=== PATIENT | female | born 1955 | race Caucasian/White ===

== ENCOUNTER 2016-10-11 08:35 | Emergency (ER) | payer BC ==
[~2016-10-11] VITALS: Ht 167.6 cm; Wt 104.0 kg
[2016-10-11 08:41] VITALS: BP 152/80; PULSE 82; RESP 16; TEMP 98.4; O2SAT 96
[2016-10-11 09:06] LABS: BLOOD, URINE LARGE (NEG); GLUCOSE,URINE 250 mg/dL (NEG); KETONE, URINE TRACE mg/dL (NEG)
[2016-10-11 09:13] LABS: NITRITE,URINE POS (NEG)
[2016-10-11 09:26] LABS: METHOD OF COLLECTION CLEAN CATCH; URINE COLOR ORANGE (YELLW/STRAW)
[2016-10-11 09:27] LABS: COMMENT (UR) CULTURE INDICATED; CULTURE IF INDICATED CULTURE INDICATED; RBC, URINE INNUM /hpf (0-3); SQUAMOUS EPITHELIAL CELL URINE > 8 /hpf (0-5); WBC, URINE INNUM /hpf (0-5)
[2016-10-11] MEDS ORDERED: MACR100C3 PO (09:50)
[2016-10-11] MEDS ORDERED: LEVO88TA2 PO (09:52)
[2016-10-11 09:56] VITALS: BP 146/78; PULSE 80; RESP 18; O2SAT 99
--- NOTE | 2016-10-11 10:04 | PD ---
HPI Chief Complaint: Flank/Kidney Pain Time Seen by Provider: 09:45 Travel History International Travel<30 days: No Contact w/Intl Traveler<30days: No Traveled to known affect area: No History of Present Illness HPI 61-year-old female presents with blood in her urine and intermittent bilateral low back pain over the past couple of days. Her primary care physician sent her here for evaluation of possible infection versus stone. Patient states she' s never had a kidney stone before. She denies any abdominal pain, upper back pain, fever, vomiting or other concurrent complaints. She denies being on blood thinner medications. Quality is red. Patient denies difficulty with urinating other than the bleeding and discomfort and is able to urinate on her own. She denies other modifying factors. PFSH Past Medical History Hx Anticoagulant Therapy: No High Cholesterol: Yes Diabetes: No Thyroid Disease: Yes Influenza Vaccination: Yes ?: Not Menopausal: Yes Past Surgical History Tonsillectomy: Yes Social History Alcohol Use: Yes (OCCAS) Tobacco Use: No Substance Use: No Allergies-Medications (Allergen,Severity, Reaction): Coded Allergies: No Known Allergies (Unverified , 10/11/16) Reported Meds & Prescriptions Reported Meds & Active Scripts Active Macrodantin (Nitrofurantoin Macrocrystal) 100 Mg Cap 100 Mg PO BID 7 Days Reported Levothyroxine (Levothyroxine Sodium) 88 Mcg Tab 88 Mcg PO DAILY Review of Systems Except as stated in HPI: all other systems reviewed are Neg Physical Exam Narrative GENERAL: Well-nourished, well-developed patient. Well-appearing SKIN: Warm and dry. HEAD: Normocephalic and atraumatic. EYES: No injection or drainage. ENT: No nasal drainage noted. NECK: Supple, trachea midline. CARDIOVASCULAR: Regular rate and rhythm RESPIRATORY: Breath sounds equal bilaterally. No accessory muscle use. GASTROINTESTINAL: Abdomen soft, non-tender, nondistended. EXTREMITIES: No edema. BACK: Nontender without obvious deformity. No CVA tenderness NEUROLOGICAL: Awake and alert. Motor and sensory grossly within normal limits. Normal speech. Data Data Last Documented VS Vital Signs Date Time Temp Pulse Resp B/P Pulse Ox O2 Delivery O2 Flow Rate FiO2 10/11/16 09:56 80 18 146/78 99 Room Air 10/11/16 08:41 98.4 Orders Urinalysis - C+S If Indicated (10/11/16 08:50) Urine Culture (10/11/16 09:00) Labs Laboratory Tests Test 10/11/16 09:00 Urine Collection Type CLEAN CATCH Urine Color ORANGE Urine Turbidity MOD Urine pH 5.0 Urine Specific [place] 1.008 Urine Protein 300 OR GREATER mg/dL Urine Glucose (UA) 250 mg/dL Urine Ketones TRACE mg/dL Urine Occult Blood LARGE Urine Nitrite POS Urine Bilirubin NEG Urine Leukocyte Esterase LARGE Urine RBC INNUM /hpf Urine WBC INNUM /hpf Urine Squamous Epithelial > 8 /hpf Cells Microscopic Urinalysis Comment CULTURE INDICATED Urine Collection Time 09:00 MDM Medical Decision Making Medical Screen Exam Complete: Yes Emergency Medical Condition: Yes Medical Record Reviewed: Yes (past history confirmed) Interpretation(s) Urine with signs of infection with positive nitrates and blood and white blood cell Differential Diagnosis Hemorrhagic cystitis, stone, mass Narrative Course Lengthy discussion with nurse at bedside and offered blood work and CAT scan to rule out other process. Patient preferring to treat urinary tract infection and if symptoms persists she will return for blood work and CAT scan at that time. She understands given we have not check these the importance of return instructions and I discussed these at length with her. Diagnosis Primary Impression: Hemorrhagic cystitis Patient Instructions: General Instructions Additional Instructions: return as needed, follow with primary tommorrow Med/Other Pt SpecificInfo: Prescription(s) given Scripts Nitrofurantoin Macrocrystal (Macrodantin)100 Mg [id number] Mg PO BID 7 Days Prov:Yun Nuñez MD 10/11/16 Disposition: 01 DISCHARGE HOME Condition: Stable Yun Nuñez MD Oct 11, 2016 10:04
== END 2016-10-11 10:11 | disposition home or self-care (01) ==
LOC: PHED 08:35
DX: N30.91 Cystitis, unspecified with hematuria (principal); B96.89 Other specified bacterial agents as the cause of diseases classified elsewhere
CPT/HCPCS: 81001; 87086; 99283